=== PATIENT | female | born 2000 ===

== ENCOUNTER 2019-02-25 19:35 | Emergency (ER) | payer SELFPAY ==
[2019-02-25 19:52] VITALS: BP 121/81
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
[2019-02-25] MEDS ORDERED: Neosporin TOPICAL OINT* 1 EA PACKET TOPICAL ONE (20:08)
== END 2019-02-25 20:17 | disposition home or self-care (01) ==
LOC: UCEAST 19:35
DX: S01.412A Laceration without foreign body of left cheek and temporomandibular area, initial encounter (principal); Y04.0XXA Assault by unarmed brawl or fight, initial encounter; Y92.9 Unspecified place or not applicable
CPT/HCPCS: 99201; G0463